=== PATIENT | female | born 1975 | race Caucasian/White ===

== ENCOUNTER 2018-08-23 15:39 | Emergency (ER) | payer SELFPAY ==
[~2018-08-23] VITALS: Ht 177.8 cm; Wt 156.5 kg
[2018-08-23 16:12] VITALS: BP 164/95
--- NOTE | 2018-08-23 16:33 | PHYS DOC ---
Past Medical History Past Medical History: Migraines Past Surgical History: Cholecystectomy, Tonsillectomy, Tubal ligation Additional Past Surgical Histo: nose Alcohol Use: None Drug Use: Marijuana Social History Narrative: last use 2 days ago Adult General Chief Complaint Chief Complaint: LOWER EXT PAIN [facility] HPI Patient is a 43 year old female who presents with fire alarm went off and her work yesterday and she ran up the stairs to exit in her pop in her right knee. Patient states that she did already has chronic knee pain but now it is exacerbated. Patient states that the pain will radiate at 8 from her knee to the back of her thigh up to her hip. Patient states that it hurts to bend the knee or stretches out. Patient is up and able to ambulate but is slow due to pain. Patient states she's been taking ibuprofen and Tylenol but has not taken any today. She states she did go to work today. Review of Systems Review of Systems Constitutional: Denies fever or chills [] Eyes: Denies change in visual acuity, redness, or eye pain [] HENT: Denies nasal congestion or sore throat [] Respiratory: Denies cough or shortness of breath [] Cardiovascular: No additional information not addressed in HPI [] GI: Denies abdominal pain, nausea, vomiting, bloody stools or diarrhea [] : Denies dysuria or hematuria [] Musculoskeletal: Denies back pain. Right knee joint pain. [] Integument: Denies rash or skin lesions [] Neurologic: Denies headache, focal weakness or sensory changes [] Endocrine: Denies polyuria or polydipsia [] All other systems were reviewed and found to be within normal limits, except as documented in this note. Current Medications Current Medications Current Medications Medications (Trade) Dose Ordered Sig/[facility] Start Time Stop Time Status Last Admin Dose Admin Acetaminophen/ Hydrocodone Bitart (Lortab 5/325) 1 tab 1X ONCE 08/23/18 16:30 08/23/18 16:31 DC 08/23/18 16:51 1 TAB Ketorolac Tromethamine (Toradol Im) 60 mg 1X ONCE 08/23/18 16:30 08/23/18 16:31 DC 08/23/18 16:52 60 MG Allergies Allergies Allergies Coded Allergies Type Severity Reaction Last Updated Verified ciprofloxacin Allergy Intermediate rash 08/23/18 Yes sulfamethoxazole Allergy Intermediate leg swelling 08/23/18 Yes trimethoprim Allergy Intermediate leg swelling 08/23/18 Yes Physical Exam Physical Exam Constitutional: Well developed, well nourished, no acute distress, non-toxic appearance. [] HENT: Normocephalic, atraumatic, bilateral external ears normal, oropharynx moist, no oral exudates, nose normal. [] Eyes: PERRLA, EOMI, conjunctiva normal, no discharge. [] Neck: Normal range of motion, no tenderness, supple, no stridor. [] Cardiovascular:Heart rate regular rhythm, no murmur [] Lungs & Thorax: Bilateral breath sounds clear to auscultation [] Abdomen: Bowel sounds normal, soft, no tenderness, no masses, no pulsatile masses. [] Skin: Warm, dry, no erythema, no rash. [] Back: No tenderness, no CVA tenderness. [] Extremities: Right knee pain with extension or bending tenderness, no cyanosis, no clubbing, ROM intact, no edema. [] Neurologic: Alert and oriented X 3, normal motor function, normal sensory function, no focal deficits noted. [] Psychologic: Affect normal, judgement normal, mood normal. [] Current Patient Data Vital Signs Vital Signs Date Time Temp Pulse Resp B/P (MAP) Pulse Ox O2 Delivery O2 Flow Rate FiO2 08/23/18 16:12 98.1 72 16 164/95 (118) 97 Room Air 98.1 EKG EKG [] Radiology/Procedures Radiology/Procedures Right knee Impressions: Knee xray shows no acute findings and was read by Dr Soria. Course & Med Decision Making Course & Med Decision Making Patient is a 43 year old female who presents with fire alarm went off and her work yesterday and she ran up the stairs to exit in her pop in her right knee. Patient states that she did already has chronic knee pain but now it is exacerbated. Patient states that the pain will radiate at 8 from her knee to the back of her thigh up to her hip. Patient states that it hurts to bend the knee or stretches out. Patient is up and able to ambulate but is slow due to pain. Patient states she's been taking ibuprofen and Tylenol but has not taken any today. She states she did go to work today. The right knee is not swollen or bruised and is only slightly tender to palpation on the anterior knee but not the posterior knee. Patient is able to sit and stand okay but hurts when she bends over or has to bend the knee. The knee joint is stable with examination. She is alert and oriented. Patient denies any other pain. Patient has a radial and popliteal pulse. There is no swelling in her lower extremity has distal from the injury. Patient rates her pain an 8 out of 10. Have ordered her Clarkson, Toradol to be given for pain control. Knee x ray read by Dr Soria and there are no acute findings. Patient to follow up with her primary care. I will give the patient a edgardo bandage and a prescription for Ibuprofen and Clarkson. [] Dragon Disclaimer Dragon Disclaimer This electronic medical record was generated, in whole or in part, using a voice recognition dictation system. Departure Departure Impression: Primary Impression: Knee injury Disposition: 01 HOME, SELF-CARE Condition: STABLE Referrals: HELENE MIMS MD (PCP) Patient Instructions: Knee Pain Additional Instructions: Follow up with your primary care Physician. Use ice to help with pain and edgardo wrap. Take medications as prescribed. Scripts Hydrocodone/Apap 5-325 (NORCO 5-325 TABLET) 1 Each Tablet 1 TAB PO PRN Q6HRS PRN for PAIN, #5 TAB 0 Refills Prov: TEDDY SOLIS APRN 08/23/18 Ibuprofen (IBUPROFEN) 600 Mg Tablet 600 MG PO PRN Q6HRS PRN for INFLAMMATION, #15 TAB Prov: TEDDY SOLIS APRN 08/23/18 Problem Qualifiers Primary Impression: Knee injury Encounter type: initial encounter Laterality: right Qualified Codes: S89.91XA - Unspecified injury of right lower leg, initial encounter TEDDY SOLIS [employer]INEER[employer] Aug 23, 2018 16:33
[2018-08-23] MEDS: HYDROcodone/APAP 5/325MG 1 TAB TABLET PO ONE (16:51)
[2018-08-23] MEDS: KETOROLAC 60 MG/2 ML INJ. IM ONE (16:52)
--- NOTE | 2018-08-23 17:05 | RAD ---
KNEE RIGHT 4V Clinical Indication: FALL RUNNING UP STAIRS LAST NIGHT. HEARD A POP Comparison: None. Findings: Slight lateral subluxation of the patella. Small marginal osteophytes of the medial compartment. Lateral patellofemoral joint space narrowing. The medial and lateral compartment joint spaces are maintained. The mineralization is normal. Patella in anatomic position on the lateral view. No joint effusion is appreciated. No acute fracture. Soft tissues unremarkable. IMPRESSION: No acute fracture. Electronically signed by: Prashant Mak MD (08/23/2018 5:01 PM) [facility]
[2018-08-23] MEDS ORDERED: HYDR-971 PO (17:06)
[2018-08-23] MEDS ORDERED: IBUP-1007 PO (17:06)
== END 2018-08-23 17:15 | disposition home or self-care (01) ==
LOC: ER 15:39
DX: S89.91XA Unspecified injury of right lower leg, initial encounter (principal); G43.909 Migraine, unspecified, not intractable, without status migrainosus; Z90.49 Acquired absence of other specified parts of digestive tract; Z90.89 Acquired absence of other organs; Z98.51 Tubal ligation status; Z88.1 Allergy status to other antibiotic agents; Z88.2 Allergy status to sulfonamides; X58.XXXA Exposure to other specified factors, initial encounter; Y93.02 Activity, running; Y92.89 Other specified places as the place of occurrence of the external cause; Y99.0 Civilian activity done for income or pay
CPT/HCPCS: 73564; 96372; 99284; J1885